=== PATIENT | male | born 1950 | race Caucasian/White ===

== ENCOUNTER 2020-06-14 18:08 | Emergency (ER) | payer OTHER ==
[~2020-06-14] VITALS: Ht 177.8 cm; Wt 79.4 kg
[2020-06-14] MEDS ORDERED: TENORMIN25 MG (18:17)
[2020-06-15] MEDS ORDERED: AMOX-CLAV 875-1 EACH PO (09:00)
[2020-06-15] MEDS ORDERED: LEVSIN0.125 MG PO (09:00)
== END 2020-06-15 09:26 | disposition home or self-care (01) ==
LOC: ER 18:08 → EDBD 18:40 → ER 18:40
DX: K80.80 Other cholelithiasis without obstruction (principal); K57.30 Diverticulosis of large intestine without perforation or abscess without bleeding; D72.828 Other elevated white blood cell count; R14.0 Abdominal distension (gaseous); R19.7 Diarrhea, unspecified; Z03.818 Encounter for observation for suspected exposure to other biological agents ruled out

== ENCOUNTER 2020-06-15 14:09 | Inpatient (IN) | payer OTHER ==
[~2020-06-15] VITALS: Ht 177.8 cm; Wt 77.1 kg
[~2020-06-15 14:09] MED LIST: AMOX-CLAV 875-1 EACH PO; LEVSIN0.125 MG PO; TENORMIN25 MG
--- NOTE | 2020-06-15 14:39 | NUR ---
SE RECIBE PTE ALERTA Y ORIENTADO X3,REFIERE TENR FIEBRE ,FAMILIAR REFIERE QUE COMENZO A TEMBLAR MARISOL,NO TIENE DOLOR,TUVO 2 EMESIS.
--- NOTE | 2020-06-15 15:27 | NUR ---
EVALUA PTE. SE ORIENTA A PTE SOBRE TX MEDICO. PTE REFIERE COMPRENDER. SE COLECTAN MUESTRAS DE LABORATORIO BAJO MEDIDAS ASEPTICAS Y SE ENVIAN AL LABORATORIO. SE ADMINISTRAN MEDICAMENTOS LEXI ORDEN MEDICA. PTE REHUSA MEDICACION PARA EL DOLOR. SE NOTIFICA SELMA X Y SONOGRAMA. PENDIENTE RE-EVALUACION MEDICA.
--- NOTE | 2020-06-15 15:50 | NUR ---
SE REALIZA EKG Y SE PRESENTA A DR. AUGUST PARA EVALUACION MEDICA. SE ORIENTO A PACIENTE SOBRE PROCEDIMIENTO.
--- NOTE | 2020-06-16 02:02 | NUR ---
SE RECIBE MASCULINO ALERTA Y ORIENTADO POR AUDELIA ESFERAS, EN CONSUELO CON BARANDAS ELEVADAS Y SEGURAS. AREA DE VENOPUNCION CATE DE EDEMA O ENROJECIMIENTO. RECIBIENDO IVF ORDENADO. PENDIENTE VISITA DE MEDICOS CONSULTADOS.
--- NOTE | 2020-06-16 08:05 | NUR ---
SE ORIENTA PACIENTE SOBRE PROCESO DE ADMISION EL CUAL ESTA KIT PLANNER TO OR. PACIENTE REFIERE COMPRENDER. SE PROVEE VESTIMENTA PARA OR. SE VERIFICA PACIENTE EN VARIAS OCACIONES Y AUN NO DANGELO HECHO EL CAMBIO DE ROPA. SE VUELVE Y SE ORIENTA PACIENTE.
== END 2020-06-17 10:25 | disposition home or self-care (01) | DRG 419 ==
LOC: ER 14:09 → SURH 06-16 09:11 → SEC-K 06-16 09:11 → O/R 06-16 15:14 → SURH 06-16 15:46 → EDBD 06-17 10:25 → SURH 06-17 10:25
PROVIDERS: ADMIT Surgery; ATTEND Surgery
PROC: BW40ZZZ Ultrasonography of Abdomen (ICD-10-PCS; 2020-06-15)
PROC: 4A033R1 Measurement of Arterial Saturation, Peripheral, Percutaneous Approach (ICD-10-PCS; 2020-06-16)
PROC: 0FT44ZZ Resection of Gallbladder, Percutaneous Endoscopic Approach (ICD-10-PCS; principal; 2020-06-16 13:00)
DX: K80.00 Calculus of gallbladder with acute cholecystitis without obstruction (principal); Z20.828 Contact with and (suspected) exposure to other viral communicable diseases

== ENCOUNTER 2020-06-19 06:21 | Emergency (ER) | payer OTHER ==
[~2020-06-19] VITALS: Ht 177.8 cm; Wt 77.1 kg
== END 2020-06-19 10:18 | disposition home or self-care (01) ==
LOC: ER 06:21 → EDBD 06:25 → ER 10:18
DX: R33.8 Other retention of urine (principal); N99.0 Postprocedural (acute) (chronic) kidney failure

== ENCOUNTER 2020-11-10 05:20 | Day surgery (SDC) | payer OTHER | END 2020-11-10 15:40 | disposition home or self-care (01) | LOC: CIR.AMB 05:20 | PROVIDERS: ATTEND Surgery | DX: K40.90 Unilateral inguinal hernia, without obstruction or gangrene, not specified as recurrent (principal); Z20.822 Contact with and (suspected) exposure to COVID-19; D17.6 Benign lipomatous neoplasm of spermatic cord ==